=== PATIENT | female | born 1980 | race Caucasian/White ===

== ENCOUNTER → 2016-05-28 | Day surgery (SDC) | payer OTHER ==
[2016-05-22 13:55] VITALS: Ht 162.6 cm; Wt 63.6 kg
[~2016-05-28] VITALS: Ht 162.6 cm; Wt 63.6 kg
[~2016-05-28] MED LIST: DULO-24 PO; LIDOCAINE HCL 2% 2 ML VIAL (20MG/ML) ONE; MELO7.5T5 PO; MIDAZOLAM HCL 1 MG/ML 2ML VIAL ONE; ONDANSETRON INJ 2 MG/ML 2 ML VIAL ONE; PANT40TA PO; PROPOFOL IV EMULSION 10 MG/ML 20 ML VIAL IV ONE
--- NOTE | 2016-05-28 12:15 | Endo History and Physical ---
History & Physical Date of Service: May 28, 2016. Chief Complaint: reflux Referring Physician: Dr. Madelyn Rasheed RN History of Present Illness 35 yo CF who presents for EGD secondary to GERD. Past Surgical History Hx Cardiac Surgery: No Hx Internal Defibrillator: No Hx Pacemaker: No Hx Abdominal Surgery: Yes ( X 2, UMBILICAL HERNIA,PARTIAL HYSTERECTOMY ) Hx of Implantable Prosthesis: No Hx Post-Op Nausea and Vomiting: No Hx Cancer Surgery: No Hx Thoracic Surgery: No Hx Orthopedic: No Hx Urinary Tract Surgery: No Family History IBD Social History Smoking Status: Never Smoker Hx Substance Use: No Hx Alcohol Use: No Allergies Coded Allergies: No Known Allergies (Verified , 05/22/16) Current Medications Reported Home Medications Medications Dose Route/Sig Max Daily Dose Days Date Category Cymbalta (Duloxetine HCl) 20 Mg Cap 1 Cap PO QAM 30 03/26/16 Reported Protonix (Pantoprazole Sodium) 40 Mg Tab 40 Mg PO QAM 03/26/16 Reported Vital Signs Weight (Kilograms): 63.64 Height (Feet): 5 Height (Inches): 4 Date Time Temp Pulse Resp B/P Pulse Ox O2 Delivery O2 Flow Rate FiO2 05/28/16 11:27 36.6 81 16 110/72 97 Room Air Physical Exam General Appearance: WD/WN, no apparent distress Respiratory/Chest: Auscultation: breath sounds normal Cardiovascular: Heart Auscultation: RRR Abdomen: Bowel Sounds: normal Inspection & Palpation: soft, non-distended, no tenderness, guarding & rebound Assessment and Plan Assessment: 35 yo CF who presents for EGD secondary to GERD. Plan: Proceed with EGD
--- NOTE | 2016-05-28 12:50 | GI REPORT ---
Procedure Date: 05/28/2016 12:30 PM Procedure: Upper GI endoscopy Indications: Gastro-esophageal reflux disease Medicines: Monitored Anesthesia Care Complications: No immediate complications. Estimated Blood Loss: Estimated blood loss: none. Procedure: Pre-Anesthesia Assessment: - Prior to the procedure, a History and Physical was performed, and patient medications and allergies were reviewed. The patient's tolerance of previous anesthesia was also reviewed. The risks and benefits of the procedure and the sedation options and risks were discussed with the patient. All questions were answered, and informed consent was obtained. Prior Anticoagulants: The patient has taken no previous anticoagulant or antiplatelet agents. ASA Grade Assessment: I - A normal, healthy patient. After reviewing the risks and benefits, the patient was deemed in satisfactory condition to undergo the procedure. After obtaining informed consent, the endoscope was passed under direct vision. Throughout the procedure, the patient's blood pressure, pulse, and oxygen saturations were monitored continuously. The On-site loaner was introduced through the mouth, and advanced to the second part of duodenum. The upper GI endoscopy was accomplished without difficulty. The patient tolerated the procedure well. Findings: The esophagus was normal. Localized mild inflammation characterized by erythema was found in the gastric antrum. Biopsies were taken with a cold forceps for histology. The examined duodenum was normal. Impression: - Normal esophagus. - Gastritis. Biopsied. - Normal examined duodenum. Recommendation: - Resume previous diet. - Continue present medications. - Await pathology results. - Return to GI office as previously scheduled. Otis Hoff DO 05/28/2016 12:50:04 PM This report has been signed electronically. Note Initiated On: 05/28/2016 12:30 PM I attest to the content of the Intraoperative Record and orders documented therein, exceptions below
--- NOTE | 2016-05-28 12:54 | Discharge Instructions ---
Endoscopy Patient Instructions Date / Procedure(s) Performed May 28, 2016. EGD Allergy Information Coded Allergies: No Known Allergies (Verified , 05/22/16) Discharge Date / Findings May 28, 2016. Gastritis s/p biopsies Medication Instructions OK to resume all medications today as prescribed Reported Home Medications Medications Dose Route/Sig Max Daily Dose Days Date Category Cymbalta (Duloxetine HCl) 20 Mg Cap 1 Cap PO QAM 30 03/26/16 Reported Protonix (Pantoprazole Sodium) 40 Mg Tab 40 Mg PO BID 03/26/16 Reported Provider Instructions Activity Restrictions - No exercising or heavy lifting for 24 hours. - Do not drink alcohol the day of the procedure. - Do not drive a car or operate machinery until the day after the procedure. - Do not make any important decisions or sign important papers in 24 hours after the procedure. Following Day: - Return to full activity which may include returning to work/school. Diet Start your diet with liquids and light foods (jello, soup, juice, toast). Then eat your usual diet if not nauseated. Treatment For Common After Affects For mild abdominal pain, bloating, or excessive gas: - Rest - Eat lightly - Lie on right side Follow-Up Information Follow-up with Dr. Madelyn Rasheed RN as scheduled Anesthesia Information What You Should Know You have had a procedure that required some medicine to reduce anxiety and discomfort. This treatment is called moderate sedation. After receiving the treatment, you may be sleepy, but you will be able to breathe on your own. The effects of the treatment may last for several hours. Follow these instructions along with Activity/Diet recommendations noted above: * Do NOT do anything where dizziness or clumsiness would be dangerous. * Rest quietly at home today, then you can be up and about tomorrow. * Have a responsible person stay with you the rest of today. * You may have had an I.V. today. If so, you may take the dressing off later today. Recommendations Call your doctor if: * Trouble breathing * Continuous vomiting for more than 24 hours * Temperature above 101 degrees * Severe abdominal pain or bloating * Pain not relieved by pain medicine ordered * There is increased drainage or redness from any incision * A large amount of rectal bleeding greater than 2-3 tablespoons. (If you had a polyp/s removed or have hemorrhoids, a small amount of blood - from the rectum is to be expected.) * You have any unanswered questions or concerns. IN THE EVENT OF A SERIOUS EMERGENCY, GO TO THE NEAREST EMERGENCY ROOM Your discharge instructions were prepared by provider Otis Hoff. Patient Instructions Signature Page Madelyn Wells Patient (or Guardian) Signature/Date: I have read and understand the instructions given to me by my caregivers. Caregiver/RN/Doctor Signature/Date: The above-named patient and/or guardian has received patient instructions on this date. + Original Patient Signature Page (only) stays with chart. Please make copy for patient.
[2016-05-28 13:25] VITALS: BP 106/78; PULSE 81; O2SAT 99
--- NOTE | 2016-05-28 13:54 | Anesthesiology Progress Note ---
Anesthesia Post Op Note Date & Time May 28, 2016 at 13:54 Vital Signs Pain Intensity: 0 Vital Signs Past 12 Hours Date Time Temp Pulse Resp B/P Pulse Ox O2 Delivery O2 Flow Rate FiO2 05/28/16 13:25 81 16 106/78 99 Room Air 05/28/16 13:08 74 16 107/76 97 Room Air 05/28/16 12:53 76 16 96/65 97 Room Air 05/28/16 11:27 36.6 81 16 110/72 97 Room Air Notes Mental Status: alert / awake / arousable, participated in evaluation Pt Amnestic to Procedure: Yes Nausea / Vomiting: adequately controlled Pain: adequately controlled Airway Patency, RR, SpO2: stable & adequate BP & HR: stable & adequate Hydration State: stable & adequate Anesthetic Complications: no major complications apparent
== END | disposition home or self-care (01) ==
LOC: C.GI 10:47
PROVIDERS: ATTEND Internal Medicine
DX: K21.9 Gastro-esophageal reflux disease without esophagitis (principal); K29.50 Unspecified chronic gastritis without bleeding

== ENCOUNTER → 2016-10-17 | Outpatient (CLI) | payer OTHER ==
[~2016-10-17] MED LIST changes: -LIDOCAINE HCL 2% 2 ML VIAL (20MG/ML) ONE; -MELO7.5T5 PO; -MIDAZOLAM HCL 1 MG/ML 2ML VIAL ONE; -ONDANSETRON INJ 2 MG/ML 2 ML VIAL ONE; -PROPOFOL IV EMULSION 10 MG/ML 20 ML VIAL IV ONE
[2016-10-17 12:16] LABS: URINE APPEARANCE CLEAR (CLEAR); URINE BILIRUBIN NEG (NEG); URINE COLOR YELLOW; URINE NITRITE NEG (NEG); URINE PH 7.5 (4.5-7.5); URINE SPECIFIC GRAVITY 1.011 (1.000-1.030); UROBILINOGEN NEG (NEG)
[2016-10-17 12:21] LABS: MANUAL MICROSCOPIC REQUIRED? NO; REVIEW REQ? NO
== END | disposition home or self-care (01) ==
LOC: C.LABSPEC 11:49
PROVIDERS: ATTEND Family Medicine
DX: N39.0 Urinary tract infection, site not specified (principal)

== ENCOUNTER → 2016-11-20 | Outpatient (CLI) | payer OTHER ==
--- NOTE | 2016-11-20 10:51 | DIAGNOSTIC IMAGING REPORT ---
KUB HISTORY: N39.0 Urinary tract [id number] LLQ [id number] COMPARISON: Abdomen and pelvis CT 03/22/2016. FINDINGS: The bowel gas pattern is unremarkable. There are no dilated loops of small bowel to suggest an obstruction. The majority of the right renal shadow is obscured by overlying bowel gas. No definite renal or ureteral calculi. Multiple nonspecific calcifications in the deep pelvis. These favor phleboliths. No pneumoperitoneum or pneumatosis. Moderate well-formed stool seen within the colon. IMPRESSION: No definite renal or ureteral calculi. Multiple calcifications in the deep pelvis are nonspecific but favor phleboliths. Electronically signed by: Ladarius Cifuentes M.D. 11/20/2016 10:50 AM Dictated Date/Time: 11/20/2016 10:48 AM
== END | disposition home or self-care (01) ==
LOC: C.RAD 10:27
PROVIDERS: ATTEND Nurse Practitioner Family
DX: N39.0 Urinary tract infection, site not specified (principal); R10.32 Left lower quadrant pain

== ENCOUNTER → 2016-11-28 | Outpatient (CLI) | payer OTHER ==
[2016-11-28 10:44] LABS: URINE APPEARANCE CLEAR (CLEAR); URINE BILIRUBIN NEG (NEG); URINE COLOR YELLOW; URINE NITRITE NEG (NEG); URINE SPECIFIC GRAVITY 1.012 (1.000-1.030); UROBILINOGEN NEG (NEG)
[2016-11-28 10:47] LABS: MANUAL MICROSCOPIC REQUIRED? NO; REVIEW REQ? NO
== END | disposition home or self-care (01) ==
LOC: C.LABSPEC 10:34
PROVIDERS: ATTEND Nurse Practitioner Family
DX: R35.0 Frequency of micturition (principal)

== ENCOUNTER → 2017-10-23 | Outpatient (CLI) | payer OTHER ==
--- NOTE | 2017-10-24 06:09 | PAP/PSG TECHNICIAN REPORT ---
[facility] [place] Polysomnogram Report Study name: None Report date: 10/24/2017 Study date: 10/23/2017 Referring Physician: Dr. Linder Name: MARIALUISA WELLS Interpreting Physician: Raegan Linder M.D. Date of : 1980 Filleter: Balaji Alston RPSGT. Sex: Female Age: 36 StudyType: PSG Weight: 153 lbs 12.5 inches Height: 36 years, Height 5' 4" Neck Circum: BMI: 26.26 Medications: MELOXICAM 7.5 MG, PROTONIX 40 MG, CYMBALTA 20 MG, VALTREX 500 MG Patient History PATIENT HAS HISTORY OF FATIGUE, DAYTIME SLEEPINESS AND SNORING. SHE RECENTLY HAD A HOME SLEEP STUDY DONE THAT WAS INCONCLUSIVE. SHE IS HERE TODAY FOR AN EVALUATION FOR DREA. ESS = 12 RM 8 Parameters Monitored NPSG: E1-M2, E2-M1, Fp1-M2, Fp2-M1, F3-M2, F4-M2, F4-M1, C3-M2, C4-M2, C4-M1, O1-M2, O2-M2, O2-M1, T3-M2, T4-M1, P3-M2, P4-M1, CHIN1, CHIN2, HR, EKG, Legs, PFLOW, SNOR, FLOW, CFLOW, Tidal Volume, THOR, ABDO, SpO2, PLTH, CPRESS, ETCO2 Wave, ETCO2, pH Sleep Architecture Sleep Stages Time at Lights Off 9:52:24 PM STAGES Time (min.) TST (%) Time at Lights On 5:44:54 AM Wake 45.0 -- Total Recording Time (TRT) 473.00 min. N1 18.5 4 Total Sleep Period (TSP) 457.0 min. N2 252.5 59 Total Sleep Time (TST) 427.5min. N3 51.5 12 Awake Time 45.0 min. REM 105.0 25 Wake after Sleep Onset 29.5 min. Sleep Efficiency (SE) 90 % Sleep Onset Latency (JAZZ) 15.5 min. Number of Stage 1 Shifts None Awakenings 8 Stage Changes 57 Number of REM periods 4 REM 105.0 25 REM Latency 271.0 min. NREM 322.5 75 Body Position Analysis Supine Right Left Side Prone Vertical Total Sleep Time (min.) 207.7 66.1 174.5 240.60 0.0 0.0 Total Sleep Time (%) 44% 15% 41% 56 0% N/A% Total Sleep Time REM (min.) 44.5 0.0 60.5 None 0.0 0.0 Total Sleep Time NREM (min.) 142.4 66.1 114.0 None 0.0 0.0 Intermittent Wake (min.) 20.8 1.8 22.4 None 0.0 0.0 Total Sleep Period (%) 43% None None None None None Arousals Myoclonus (PLM) * Events Count Index Events Count Index Spontaneous 47 7 Events Awake (PLMW) 51 68.0 Respiratory 5 0.7 Events Asleep w/ Arousal (PLMA) 15 2.1 PLM 15 2 Events Asleep w/o Arousal (PLMS) 102 14.3 Snoring 7 1 Total Asleep 117 16.4 Total 74 10 Total 168 21 Respiratory Analysis * CA OA MA CH H RERA Total Count 0 0 0 0 2 11 2 Index 0.0 0.0 0.0 0 0.3 2 1.8 Mean Duration 0.0 0.0 0.0 0.00 21.4 13.9 15.1 Longest Duration 0.0 0.0 0.0 0.00 0.0 19.0 26.0 Respiratory Event Summary Total Supine ~Supine Right Left Prone REM NREM Apneas Count 0 0 0 0 0 N/A 0 0 Index 0.0 0 0 0.0 0.0 N/A 0 0 Hypopneas (4% Desat) Count 2 1 1 0 1 N/A 1 1 Index 0.3 0.3 0 0.0 0.3 N/A 0.6 0.2 Apneas & All Hypopneas Count 2 1 1 0 1 N/A 1 1 Index 0.3 0 0 0 0 N/A 0.6 0.2 Respiratory Events (Tool Or Die Drawing Checker+All Hyp+RERA) Count 2 1 12 11 1 N/A 1 1 Index 1.8 0 3 10.0 0.3 N/A 0.6 2.2 Respiratory Related Arousal Count 5 1 5 5 0 N/A 0 5 Index 0.7 0 1 5 0 N/A 0 1 Snoring Analysis Supine Right Left Prone REM NREM Total Snore duration 11.5 min Snores count 243 99 229 N/A 267 304 571 Snore mean duration 1.2 Sec Snores index 78 90 79 N/A 152.6 56.6 80.1 TST with snoring (%) 2.7% Desaturation Event Summary: Minimum %SpO2 Event Count Mean/Min/Max Duration(sec.) Desaturation Index % Time In Bed > 90 2 41.1 / 26.5 / 55.7 0.3 99.9 86 - 90 0 N/A 0.0 0.1 81 - 85 0 N/A 0.0 0.0 76 - 80 0 N/A 0.0 0.0 71 - 75 0 N/A 0.0 0.0 66 - 70 0 N/A 0.0 0.0 61 - 65 0 N/A 0.0 0.0 56 - 60 0 N/A 0.0 0.0 51 - 55 0 N/A 0.0 0.0 < 50 0 N/A 0.0 0.0 Total REM NREM Awake <50% 0.0 min. 0.0 min. 0.0 min. 0.0 min. 51 - 60% 0.0 min. 0.0 min. 0.0 min. 0.0 min. 61 - 70% 0.0 min. 0.0 min. 0.0 min. 0.0 min. 71 - 80% 0.0 min. 0.0 min. 0.0 min. 0.0 min. 81 - 90% 0.5 min. 0.0 min. 0.3 min. 0.2 min. 91 - 100% 466.6 min. 105.0 min. 322.2 min. 39.4 min. Average 95 95 95 96 Minimum SpO2 86 92 89 86 Desaturation Event Index 0.3 0.6 0.2 0.0 # Desat. Events below 89% N/A N/A N/A N/A Time(%) with Saturation below 89% 0.0 0.0 0.0 0.0 Time(min.) with Saturation below 89% 0.2 0.0 0.0 0.2 Time (mins) REM (mins) NREM (mins) % of TST SpO2 Below 90% 1 N/A N1 0.0 SpO2 Below 88% 0 0 0 0 Heart Rate Analysis Min (bpm) Max (bpm) Average (bpm) Awake 60 96 73 NREM 57 95 69 REM 58 91 71 Overall 57 95 70 Supplemental O2 Values Minimum O2 level: None Value Start Time End Time Filleter Comments Ms. Wells slept in the right, left and supine positions. No cardiac arrhythmia noted. Leg movements noted. Some bruxism noted. Snoring was noted and scored as a 2 on a scale of 1 through 5. (0=no snoring, 5=snoring loud enough to be heard through a closed door or down the carnes way) Ms. Wells awoke to use the restroom 1 time during the night. Ms. Wells stated I slept as well as I do when I am in my own bed. The final report will be interpreted and signed by a sleep physician. The completed physician report will then be placed in the patient medical record. Therapy (cm H2O) 0 TIB (min.) 472.5 TST (min.) 427.5 Sleep Onset (min.) 15.5 REM Onset From Sleep (min.) 271.0 Sleep Efficiency % 90 Wakefulness (%) 10 Wakefulness (min.) 45.0 NREM 1 (%) 4 NREM 1 (min.) 18.5 NREM 2 (%) 59 NREM 2 (min.) 252.5 NREM 3 (%) 12 NREM 3 (min.) 51.5 REM (%) 25 REM (min.) 105.0 # Arousals 74 Arousal Index 10 # Snore 571 Snore Index 80.1 AHI 0.3 AHI Supine 0 AHI Non-Supine 0 NREM AHI 0.2 REM AHI 0.6 RDI 1.8 # Obstructive Apnea 0 # Central Apnea 0 # Mixed Apnea 0 # Hypopneas 2 RERAs 11 Total Respiratory Events 13 Time Below SpO2 89% (min.) 0.0 Mean NREM SpO2 (%) 95 Mean REM SpO2 (%) 95 Mean Sleep SpO2 (%) 95 Min NREM SpO2 (%) 89 Min REM SpO2 (%) 92 Position Supine (min.) 207.7 Position Non-supine (min.) 240.6 LM Index Sleep 16.4 LM Index NREM 13.2 LM Index REM 26.3 Mean Heart Rate (bpm) 70 Min Heart Rate (bpm) 57
--- NOTE | 2017-11-13 15:20 | Sleep Study ---
Sleep Study Report Date of Service: 11/13/17 Sleep Study Report <AN- > <MR-Medical Record#: [id number]> <RT-Report type: [id number]> <DB-Dictated by: YVONNE> <SI-Site: CEC> <TB-Transcribed by: EASYIII> <DE-Department: C.NEUR> [facility] Diagnostic Polysomnogram Interp Report Study name: None Report date: 11/13/2017 Study date: 10/23/2017 Referring Physician: Dr. Linder Name: MARIALUISA MALAVE Keegan Interpreting Physician: Raegan Linder M.D. Date of : 1980 Maxillofacial Pathology: JUANIS Cooney. Sex: Female Age: 36 StudyType: PSG Weight: 153 lbs Height: 36 years, Height 5' 4" BMI: 26.26 DIAGNOSTIC POLYSOMNOGRAPHY REPORT This patient was referred by Dr. Linder. MARIALUISA MALAVE, tested at 9:02:55 PM on 10/23/2017, is a 36 year old female, date of 1980 who is 5' 4" and 153 lbs, with a BMI of 26.26, which is elevated. This patient has an Clinton Sleepiness Score of 12, which is abnormal. Study scored by: Raegan Linder M.D. IMPRESSION: 1-Primary snoring. If sleep apnea is strongly suspected, a repeat PSG may be indicated given night to night variability in sleep apnea and the possibility of a false negative study. 2-Abnormal sleep architecture likely due to first night effect. RECOMMENDATIONS: Consider weight loss program. Past medical history: Excessive daytime sleepiness Medications: Meloxicam, Protonix, Cymbalta, Valtrex Sleep Study Summary Procedure: The study was attended continuously by a cardiac cath lab technologist. The monitored parameters included: left (E1-M2) and right (E2-M1) EOG, frontal (F3- M2 & F4-M1), central (C3-M2 & C4-M1) and occipital (O1-M2 & O2-M1) EEG, mental and submental EMG, left and right anterior tibialis EMG, left and right extensor digitorum EMG, single ECG waveform, snoring, continuous airflow with thermistor and nasal pressure transducer, chest and abdominal effort, oxygen saturation, EtCO2, and body position via video monitoring. Hypopnea definition: The nasal pressure signal excursions (or those of the alternative hypopnea sensor) drop by 30% of baseline. The duration of this drop occurs for a period lasting at least 10 seconds. There is a 4% desaturation from pre-event baseline or the event is associated with an arousal. At least 90 % of the event's duration must meet the amplitude reduction criteria for hypopnea. Sleep Data: This patient displayed normal latency to sleep onset of 15.5 min., with disrupted sleep architecture with sleep stage percentages of 4% N1, 55% N2, 11% N3, and 23% REM, with a normal sleep efficiency of 90% and with Total Sleep Time of 427.5 minutes. Respiratory Data: 2 respiratory events were observed. The apnea-hypopnea index was 0.3 which is normal. The amounts of apneas/hypopneas are evenly distributed throughout the study, with a non-REM RDI of 2.2 and a REM RDI of 0.6. Respiratory events were more frequent in the supine position. The longest respiratory event duration was 26.0 sec. Minimum NREM oxygen saturation was 89%; minimum REM oxygen saturation was 92%. Time spent below SaO2 of 90% was 0.0 min. The time spent with SaO2 of 80-89% was 0 min. Snoring was noted to be present. Limb Movement: 117 limb movements were observed for an index of 16.4. Arousal: 74 arousals were observed, with a total index of 10. There were 47 spontaneous arousals, 5 respiratory arousals (respiratory arousal index of 0.7) , and 15 limb movement arousals (limb movement arousal index of 2). Cardiac: The average heart rate during sleep was 70 beats per minute, with a range of 57 to 95. During wake, the heart rate ranged from 60 to 96 beats per minute. There were no arrhythmias noted. [place] breathing was absent. EEG: There were no epileptic form features reported. Behavioral Observation: The patient reported that their sleep for this study was the same in duration and of the same quality as usual. The patient did not display unusual behaviors. Thank you for the courtesy of this referral. Dr Raegan Linder Board Certified in Internal/ Sleep Medicine
== END | disposition home or self-care (01) ==
LOC: C.NEUR 21:00
PROVIDERS: ATTEND Internal Medicine
DX: R06.83 Snoring (principal)